=== PATIENT | female | born 1950 | race African-American/Black ===

== ENCOUNTER 2019-09-12 20:19 | Inpatient (IN) | payer MEDICARE, MEDICAID ==
[~2019-09-12] VITALS: Ht 162.6 cm; Wt 69.4 kg
[2019-09-12] MEDS ORDERED: DEXTROSE 50% WATER 50ML SYRINGE IV ONE ×2 (21:30→21:32)
[2019-09-12 22:28] LABS: BASOPHILS % 0.4 % (0.0-2.0); EOSINOPHILS % 0.3 % (0.0-5.0); HEMATOCRIT. 32.2 % (36.0-48.0); HEMOGLOBIN. 10.7 g/dL (12.0-16.0); LYMPHOCYTES % 14.4 % (20.0-50.0); MEAN CORPUSCULAR HEMOGLOBIN 29.1 pg (28.0-32.0); MEAN PLATELET VOLUME 7.5 fl (7.4-10.4); MONOCYTES % 6.7 % (2.0-8.0); NEUTROPHILS % 78.2 % (40.0-76.0); PLATELET 551 x1000/uL (130-400); RED BLOOD CELL COUNT 3.66 mill/uL (4.2-5.4)
[2019-09-12 22:35] LABS: CHLORIDE 107 mEq/L (98-107); PROTHROMBIN TIME 11.1 sec (9.6-11.0)
[2019-09-12] MEDS ORDERED: PIPERACILLIN/TAZ 3.375G PREMIX 50 ML IV NR (23:00)
[2019-09-12] MEDS ORDERED: POTASSIUM CHLORIDE 20MEQ TABLET SR PO ONE (23:00)
[2019-09-12] MEDS ORDERED: SODIUM CHLORIDE 0.9% 1,000 ML IV NR (23:00)
[2019-09-12 23:49] LABS: CLARITY URINE TURBID (CLEAR); COLOR URINE YELLOW (YELLOW); KETONES URINE NEGATIVE (NEGATIVE); LEUKOCYTE ESTERASE URINE 3+ (NEGATIVE); NITRITE URINE NEGATIVE (NEGATIVE); OCCULT BLOOD URINE 3+ (NEGATIVE); PH URINE 5.5 (4.5-8.0); PROTEIN URINE 2+ (NEGATIVE); SPECIFIC GRAVITY URINE 1.015 (1.005-1.030); UROBILINOGEN URINE 0.2 E.U./dL (0.2-1.0)
[2019-09-13 03:00] VITALS: BP 136/67
[2019-09-13] MEDS ORDERED: GABA-290 MT (03:46)
[2019-09-13] MEDS ORDERED: INSU100C6 SQ (03:46)
[2019-09-13] MEDS ORDERED: INSU100I28 SQ (03:47)
[2019-09-13 04:00] VITALS: BP 144/67
[2019-09-13] MEDS ORDERED: DEXTROSE 50% WATER 50ML SYRINGE IV PRN ×3 (05:00→12:15)
[2019-09-13] MEDS ORDERED: SODIUM CHLORIDE 0.9% 1,000 ML IV SCH (05:00)
[2019-09-13] MEDS: ACETAMINOPHEN 325MG TABLET PO PRN (05:19)
[2019-09-13] MEDS: GABAPENTIN 300MG CAPSULE PO SCH ×4 (07:36→21:33)
[2019-09-13] MEDS: BLOOD SUGAR DIAGNOSTIC STRIP TEST SCH ×4 (07:36→21:24)
[2019-09-13 08:00] VITALS: BP 118/91
[2019-09-13] MEDS ORDERED: INSULIN LISPRO 100 UNITS/ML SUBCUT SCH (08:10)
[2019-09-13] MEDS: DOCUSATE SODIUM 100MG CAPSULE PO SCH ×2 (08:12→17:38)
[2019-09-13] MEDS: ENOXAPARIN 30MG/0.3ML SYR SUBCUT SCH (08:12)
[2019-09-13] MEDS ORDERED: ENOXAPARIN 40MG/0.4ML SYR SUBCUT SCH (09:00)
[2019-09-13 12:00] VITALS: BP 129/73
[2019-09-13] MEDS ORDERED: BLOOD SUGAR DIAGNOSTIC STRIP TEST SCH (12:40)
[2019-09-13] MEDS: INSULIN LISPRO 100 UNITS/ML SUBCUT SCH ×3 (12:55→21:25)
[2019-09-13] MEDS: PIPERACILLIN/TAZOBACTAM 2.25 G in DEXTROSE 5% WATER 50 ML IV SCH ×2 (13:53→17:42)
[2019-09-13] MEDS ORDERED: PIPERACILLIN/TAZOBACTAM 3.375 G/VIAL IV SCH (14:00)
[2019-09-13 16:00] VITALS: BP 118/62
[2019-09-13 16:23] LABS: HEMATOCRIT. 29.6 % (36.0-48.0); HEMOGLOBIN. 9.9 g/dL (12.0-16.0); MEAN CORPUSCULAR HEMOGLOBIN 28.9 pg (28.0-32.0); MEAN CORPUSCULAR VOLUME 86.4 fL (81.0-99.0); MEAN PLATELET VOLUME 7.6 fl (7.4-10.4); PLATELET 429 x1000/uL (130-400); RED BLOOD CELL COUNT 3.43 mill/uL (4.2-5.4); RED CELL DISTRIBUTION WIDTH 20.4 % (11.6-14.6)
[2019-09-13 17:30] LABS: PLATELET ESTIMATE NORMAL
[2019-09-13] MEDS: DEXT 5%/0.9% NACL 1,000 ML IV SCH (17:40)
[2019-09-13 20:37] VITALS: BP 169/76
[2019-09-14 00:22] VITALS: BP 114/68
[2019-09-14] MEDS: PIPERACILLIN/TAZOBACTAM 2.25 G in DEXTROSE 5% WATER 50 ML IV SCH ×2 (01:46→06:14)
[2019-09-14] MEDS: HYDROCODONE/ACETAMINOPHEN 5/325MG TABLET PO PRN ×2 (01:53→08:29)
[2019-09-14 04:00] VITALS: BP 109/52
[2019-09-14] MEDS: GABAPENTIN 300MG CAPSULE PO SCH ×2 (06:14→14:52)
[2019-09-14 06:42] LABS: BASOPHILS % 0.3 % (0.0-2.0); EOSINOPHILS % 0.1 % (0.0-5.0); HEMATOCRIT. 28.6 % (36.0-48.0); HEMOGLOBIN. 9.6 g/dL (12.0-16.0); LYMPHOCYTES % 12.4 % (20.0-50.0); MEAN CORPUSCULAR HEMOGLOBIN 29.5 pg (28.0-32.0); MEAN CORPUSCULAR VOLUME 87.9 fL (81.0-99.0); MEAN PLATELET VOLUME 7.5 fl (7.4-10.4); MONOCYTES % 6.1 % (2.0-8.0); NEUTROPHILS % 81.1 % (40.0-76.0); PLATELET 381 x1000/uL (130-400); RED BLOOD CELL COUNT 3.26 mill/uL (4.2-5.4); RED CELL DISTRIBUTION WIDTH 20.5 % (11.6-14.6)
[2019-09-14] MEDS: BLOOD SUGAR DIAGNOSTIC STRIP TEST SCH ×2 (07:34→12:50)
[2019-09-14] MEDS: DOCUSATE SODIUM 100MG CAPSULE PO SCH (08:29)
[2019-09-14] MEDS: ENOXAPARIN 30MG/0.3ML SYR SUBCUT SCH (08:29)
[2019-09-14] MEDS: INSULIN LISPRO 100 UNITS/ML SUBCUT SCH ×2 (08:37→12:56)
[2019-09-14] MEDS: DEXT 5%/0.9% NACL 1,000 ML IV SCH (09:43)
[2019-09-14 12:00] VITALS: BP 100/57
[2019-09-14] MEDS ORDERED: PIPERACILLIN/TAZOBACTAM 2.25 G in DEXTROSE 5% WATER 50 ML IV SCH (14:00)
[2019-09-14] MEDS: ACETAMINOPHEN 325MG TABLET PO PRN (14:52)
[2019-09-14 15:03] VITALS: BP 100/57
[2019-09-14 16:03] LABS: T4 FREE 0.81 ng/dL (0.76-1.46)
[2019-09-14 16:13] LABS: FOLIC ACID (FOLATE) SERUM 9.2 ng/mL (>5.38)
== END 2019-09-14 17:05 | disposition short-term general hospital (02) | DRG 871 ==
LOC: ER 20:19 → MICUSO 23:17 → EDBEDREQ 23:36 → EDBEDREQTM 23:36 → 7WST 09-13 03:04
PROVIDERS: ADMIT Internal Medicine; ATTEND Internal Medicine
DX: A41.50 Gram-negative sepsis, unspecified (principal); N17.0 Acute kidney failure with tubular necrosis; E43 Unspecified severe protein-calorie malnutrition; U07.1 COVID-19; G92 Toxic encephalopathy; N39.0 Urinary tract infection, site not specified; D64.9 Anemia, unspecified; E11.649 Type 2 diabetes mellitus with hypoglycemia without coma; I11.0 Hypertensive heart disease with heart failure; E87.6 Hypokalemia; I50.9 Heart failure, unspecified; G90.8 Other disorders of autonomic nervous system; R90.82 White matter disease, unspecified; R65.20 Severe sepsis without septic shock; Z68.26 Body mass index [BMI] 26.0-26.9, adult; Z86.73 Personal history of transient ischemic attack (TIA), and cerebral infarction without residual deficits
CPT/HCPCS: 36415; 71045; 72170; 80048; 80053; 81003; 82607; 82746; 82962; 83036; 83605; 83880; 84439; 84443; 84481; 84484; 85025; 87077; 87186; 93005; 96365; 99291; J1650; J1815; J2543; J7030; J7042; J7060; U0003-CS

== ENCOUNTER 2019-09-29 09:07 | Inpatient (IN) | payer MEDICARE, MEDICAID ==
[~2019-09-29] VITALS: Ht 162.6 cm; Wt 83.0 kg
[~2019-09-29 09:07] MED LIST: GABA-290 MT; INSU100C6 SQ; INSU100I28 SQ
[2019-09-29 09:54] LABS: BASOPHILS % 0.6 % (0.0-2.0); EOSINOPHILS % 0.1 % (0.0-5.0); HEMATOCRIT. 28.8 % (36.0-48.0); HEMOGLOBIN. 9.4 g/dL (12.0-16.0); LYMPHOCYTES % 21.4 % (20.0-50.0); MEAN CORPUSCULAR HEMOGLOBIN 29.3 pg (28.0-32.0); MEAN CORPUSCULAR VOLUME 89.6 fL (81.0-99.0); MEAN PLATELET VOLUME 7.6 fl (7.4-10.4); NEUTROPHILS % 70.9 % (40.0-76.0); PLATELET 401 x1000/uL (130-400); RED BLOOD CELL COUNT 3.21 mill/uL (4.2-5.4); RED CELL DISTRIBUTION WIDTH 20.1 % (11.6-14.6)
[2019-09-29 10:02] LABS: INR 1.1; PROTHROMBIN TIME 11.4 sec (9.6-11.0)
[2019-09-29 10:04] LABS: CHLORIDE 107 mEq/L (98-107)
[2019-09-29 10:08] LABS: ETHANOL BLOOD < 10 mg/dL
[2019-09-29 10:11] LABS: LDL CHOLESTEROL 134 mg/dL (5-100)
[2019-09-29] MEDS ORDERED: IOHEXOL-350 100 ML BOTTLE ONE (10:41)
[2019-09-29 10:56] LABS: BG BASE EXCESS -1.2 mmol/L (-2.0-2.0); BG CARBOXYHEMOGLOBIN 0.3 % (0.5-1.5); BG DEOXYHEMOGLOBIN 3.3 % (0.0-5.0); BG FRACTION INSPIRED OXYGEN 21; BG HCO3 ACT 22.9 mmol/L (22.0-26.0); BG METHEMOGLOBIN 0.3 % (0.0-1.5); BG OXYGEN SATURATION 96.7 % (92.0-98.5); BG OXYHEMOGLOBIN 96.1 % (94.0-97.0); BG PCO2 35.7 mmHg (35.0-45.0); BG PH 7.425 (7.350-7.450); BG PO2 93.4 mmHg (75.0-100.0); BG SAMPLE SITE RIGHT RADIAL; BG TOTAL HEMOGLOBIN 9.6 g/dL (12.0-18.0); BG VENT MODE ROOM AIR
[2019-09-29 11:20] LABS: CLARITY URINE CLEAR (CLEAR); COLOR URINE YELLOW (YELLOW); KETONES URINE TRACE (NEGATIVE); LEUKOCYTE ESTERASE URINE 1+ (NEGATIVE); NITRITE URINE NEGATIVE (NEGATIVE); OCCULT BLOOD URINE TRACE (NEGATIVE); PH URINE 5.5 (4.5-8.0); PROTEIN URINE 2+ (NEGATIVE); SPECIFIC GRAVITY URINE 1.014 (1.005-1.030)
[2019-09-29 11:44] LABS: *AMPHETAMINES SCREEN URINE NEGATIVE (NEGATIVE); *BARBITURATES SCREEN URINE NEGATIVE (NEGATIVE); *BENZODIAZEPINES SCREEN URINE NEGATIVE (NEGATIVE); CANNABINOID URINE SCREEN NEGATIVE (NEGATIVE); PHENCYCLIDINE URINE SCREEN NEGATIVE (NEGATIVE)
[2019-09-29 11:45] LABS: *COCAINE SCREEN URINE NEGATIVE (NEGATIVE); METHADONE URINE SCREEN NEGATIVE (NEGATIVE); OPIATES URINE SCREEN NEGATIVE (NEGATIVE)
[2019-09-29 15:15] VITALS: BP 112/66
[2019-09-29 16:00] VITALS: BP 115/62
[2019-09-29 20:00] VITALS: BP 121/59
[2019-09-29] MEDS ORDERED: ACETAMINOPHEN 325MG TABLET PO PRN (22:45)
[2019-09-29] MEDS ORDERED: ONDANSETRON HCL 4MG/2ML INJ IV PRN (22:45)
[2019-09-29] MEDS ORDERED: PIPERACILLIN/TAZ 3.375G PREMIX 50 ML IV SCH (22:45)
[2019-09-29] MEDS ORDERED: DEXTROSE 50% WATER 50ML SYRINGE IV PRN (23:30)
[2019-09-29] MEDS: PIPERACILLIN/TAZOBACTAM 2.25 G in DEXTROSE 5% WATER 50 ML IV SCH (23:41)
[2019-09-29] MEDS: DEXT 5%/0.9% NACL 1,000 ML IV SCH (23:41)
[2019-09-30 00:25] VITALS: BP 131/68
[2019-09-30] MEDS ORDERED: VANCOMYCIN 1250MG in DEXTROSE 5% WATER 250ML IV NR (01:00)
[2019-09-30 04:00] VITALS: BP 137/71
[2019-09-30] MEDS: BLOOD SUGAR DIAGNOSTIC STRIP TEST SCH ×4 (06:22→21:54)
[2019-09-30] MEDS: PIPERACILLIN/TAZOBACTAM 2.25 G in DEXTROSE 5% WATER 50 ML IV SCH ×3 (06:33→18:08)
[2019-09-30 06:43] LABS: EOSINOPHILS % 0.5 % (0.0-5.0); HEMOGLOBIN. 9.2 g/dL (12.0-16.0); LYMPHOCYTES % 25.1 % (20.0-50.0); MEAN CORPUSCULAR HEMOGLOBIN 29.5 pg (28.0-32.0); MEAN CORPUSCULAR VOLUME 89.3 fL (81.0-99.0); MEAN PLATELET VOLUME 7.5 fl (7.4-10.4); MONOCYTES % 9.6 % (2.0-8.0); NEUTROPHILS % 63.8 % (40.0-76.0); PLATELET 335 x1000/uL (130-400); RED BLOOD CELL COUNT 3.13 mill/uL (4.2-5.4); RED CELL DISTRIBUTION WIDTH 20.1 % (11.6-14.6)
[2019-09-30 08:00] VITALS: BP 148/69
[2019-09-30] MEDS: INSULIN LISPRO 100 UNITS/ML SUBCUT SCH ×4 (08:10→23:04)
[2019-09-30] MEDS: ENOXAPARIN 30MG/0.3ML SYR SUBCUT SCH (09:12)
[2019-09-30] MEDS: DEXT 5%/0.9% NACL 1,000 ML IV SCH ×2 (10:00→20:35)
[2019-09-30 12:00] VITALS: BP 140/73
[2019-09-30] MEDS: ASPIRIN 81MG TABLET PO SCH (15:30)
[2019-09-30 16:00] VITALS: BP 154/71
[2019-09-30 17:26] LABS: T4 FREE 0.81 ng/dL (0.76-1.46)
[2019-09-30 17:34] LABS: FOLIC ACID (FOLATE) SERUM 7.1 ng/mL (>5.38)
[2019-09-30 20:00] VITALS: BP 136/67
[2019-09-30] MEDS: ATORVASTATIN CALCIUM 40MG TABLET PO SCH (20:33)
[2019-09-30] MEDS ORDERED: VANCOMYCIN 750 MG PREMIX 150 ML IV SCH (23:00)
[2019-10-01] VITALS (11 sets, daily range): BP systolic 132–183; BP diastolic 63–84
[2019-10-01] MEDS: PIPERACILLIN/TAZOBACTAM 2.25 G in DEXTROSE 5% WATER 50 ML IV SCH ×4 (00:10→19:48)
[2019-10-01] MEDS: DEXT 5%/0.9% NACL 1,000 ML IV SCH ×2 (05:55→16:21)
[2019-10-01] MEDS: BLOOD SUGAR DIAGNOSTIC STRIP TEST SCH ×3 (06:07→18:03)
[2019-10-01 06:22] LABS: BASOPHILS % 0.7 % (0.0-2.0); HEMATOCRIT. 24.7 % (36.0-48.0); HEMOGLOBIN. 8.3 g/dL (12.0-16.0); MEAN CORPUSCULAR HEMOGLOBIN 29.8 pg (28.0-32.0); MEAN CORPUSCULAR VOLUME 88.6 fL (81.0-99.0); MEAN PLATELET VOLUME 7.7 fl (7.4-10.4); MONOCYTES % 10.3 % (2.0-8.0); PLATELET 312 x1000/uL (130-400); RED BLOOD CELL COUNT 2.79 mill/uL (4.2-5.4); RED CELL DISTRIBUTION WIDTH 20.1 % (11.6-14.6)
[2019-10-01] MEDS: INSULIN LISPRO 100 UNITS/ML SUBCUT SCH ×3 (06:38→18:12)
[2019-10-01] MEDS: ASPIRIN 81MG TABLET PO SCH (08:32)
[2019-10-01] MEDS: ENOXAPARIN 30MG/0.3ML SYR SUBCUT SCH (08:32)
[2019-10-01 11:28] LABS: BG BASE EXCESS -2.7 mmol/L (-2.0-2.0); BG CARBOXYHEMOGLOBIN 0.3 % (0.5-1.5); BG DEOXYHEMOGLOBIN 3.7 % (0.0-5.0); BG FRACTION INSPIRED OXYGEN 21; BG HCO3 ACT 20.7 mmol/L (22.0-26.0); BG METHEMOGLOBIN 0.3 % (0.0-1.5); BG OXYGEN SATURATION 96.3 % (92.0-98.5); BG OXYHEMOGLOBIN 95.7 % (94.0-97.0); BG PCO2 30.4 mmHg (35.0-45.0); BG PO2 93.9 mmHg (75.0-100.0); BG SAMPLE SITE RIGHT RADIAL; BG TOTAL HEMOGLOBIN 8.9 g/dL (12.0-18.0); BG VENT MODE ROOM AIR
[2019-10-01] MEDS ORDERED: POTASSIUM CHLORIDE INJ 40 MEQ in DEXT 5% WATER 250 ML IV SCH (15:00)
[2019-10-01] MEDS: AMLODIPINE 10MG TABLET PO SCH (16:20)
[2019-10-01] MEDS: VANCOMYCIN 750 MG PREMIX 150 ML IV SCH (18:02)
[2019-10-01] MEDS: ATORVASTATIN CALCIUM 40MG TABLET PO SCH (20:04)
[2019-10-02] VITALS (9 sets, daily range): BP systolic 131–171; BP diastolic 62–86
[2019-10-02] MEDS: PIPERACILLIN/TAZOBACTAM 2.25 G in DEXTROSE 5% WATER 50 ML IV SCH ×4 (00:17→17:24)
[2019-10-02] MEDS: BLOOD SUGAR DIAGNOSTIC STRIP TEST SCH ×4 (00:17→17:20)
[2019-10-02] MEDS: INSULIN LISPRO 100 UNITS/ML SUBCUT SCH ×4 (00:19→17:25)
[2019-10-02] MEDS: DEXT 5%/0.9% NACL 1,000 ML IV SCH ×2 (00:22→11:04)
[2019-10-02] MEDS: AMLODIPINE 10MG TABLET PO SCH (08:38)
[2019-10-02] MEDS: ENOXAPARIN 30MG/0.3ML SYR SUBCUT SCH (08:38)
[2019-10-02] MEDS: ASPIRIN 81MG TABLET PO SCH (08:38)
[2019-10-02] MEDS: VANCOMYCIN 750 MG PREMIX 150 ML IV SCH (09:00)
[2019-10-02 15:59] LABS: BASOPHILS % 0.4 % (0.0-2.0); EOSINOPHILS % 1.9 % (0.0-5.0); HEMATOCRIT. 26.6 % (36.0-48.0); HEMOGLOBIN. 8.8 g/dL (12.0-16.0); LYMPHOCYTES % 28.7 % (20.0-50.0); MEAN CORPUSCULAR HEMOGLOBIN 29.6 pg (28.0-32.0); MEAN CORPUSCULAR VOLUME 89.2 fL (81.0-99.0); MEAN PLATELET VOLUME 7.7 fl (7.4-10.4); MONOCYTES % 10.7 % (2.0-8.0); NEUTROPHILS % 58.3 % (40.0-76.0); PLATELET 330 x1000/uL (130-400); RED BLOOD CELL COUNT 2.99 mill/uL (4.2-5.4); RED CELL DISTRIBUTION WIDTH 19.4 % (11.6-14.6)
[2019-10-02] MEDS: ATORVASTATIN CALCIUM 40MG TABLET PO SCH (20:42)
[2019-10-03] VITALS (8 sets, daily range): BP systolic 144–179; BP diastolic 72–88
[2019-10-03] MEDS: PIPERACILLIN/TAZOBACTAM 2.25 G in DEXTROSE 5% WATER 50 ML IV SCH ×5 (00:08→23:46)
[2019-10-03] MEDS: BLOOD SUGAR DIAGNOSTIC STRIP TEST SCH ×5 (00:09→23:47)
[2019-10-03] MEDS: INSULIN LISPRO 100 UNITS/ML SUBCUT SCH ×5 (00:09→23:47)
[2019-10-03] MEDS: VANCOMYCIN 750 MG PREMIX 150 ML IV SCH ×2 (04:25→21:03)
[2019-10-03] MEDS: DEXT 5%/0.9% NACL 1,000 ML IV SCH ×3 (04:26→17:43)
[2019-10-03 06:10] LABS: PROTHROMBIN TIME 11.2 sec (9.6-11.0)
[2019-10-03] MEDS: ASPIRIN 81MG TABLET PO SCH (09:00)
[2019-10-03] MEDS: AMLODIPINE 10MG TABLET PO SCH (09:00)
[2019-10-03] MEDS ORDERED: MIDAZOLAM HCL 2 MG/2 ML VIAL IV PRN (13:26)
[2019-10-03] MEDS ORDERED: MIDAZOLAM HCL 5 MG/5 ML VIAL ONE (13:51)
[2019-10-03] MEDS ORDERED: FENTANYL CITRATE/PF 50MCG/ML 2ML VIAL ONE (13:52)
[2019-10-03] MEDS: ATORVASTATIN CALCIUM 40MG TABLET PO SCH (21:03)
[2019-10-04] VITALS: BP 145/77
[2019-10-04 04:00] VITALS: BP 144/71
[2019-10-04] MEDS: DEXT 5%/0.9% NACL 1,000 ML IV SCH ×2 (05:53→21:41)
[2019-10-04] MEDS: INSULIN LISPRO 100 UNITS/ML SUBCUT SCH ×3 (05:53→17:28)
[2019-10-04] MEDS: PIPERACILLIN/TAZOBACTAM 2.25 G in DEXTROSE 5% WATER 50 ML IV SCH ×3 (05:53→17:44)
[2019-10-04] MEDS: BLOOD SUGAR DIAGNOSTIC STRIP TEST SCH ×4 (05:54→23:53)
[2019-10-04 08:00] VITALS: BP 158/73
[2019-10-04] MEDS: ASPIRIN 81MG TABLET PO SCH (08:36)
[2019-10-04] MEDS: ENOXAPARIN 40MG/0.4ML SYR SUBCUT SCH (08:36)
[2019-10-04] MEDS: AMLODIPINE 10MG TABLET PO SCH (08:37)
[2019-10-04] MEDS ORDERED: CLONIDINE 0.1MG TABLET PO PRN ×2 (10:30→16:30)
[2019-10-04 12:00] VITALS: BP 153/75
[2019-10-04] MEDS: VANCOMYCIN 750 MG PREMIX 150 ML IV SCH (15:01)
[2019-10-04 16:00] VITALS: BP 141/77
[2019-10-04 20:00] VITALS: BP 151/74
[2019-10-04] MEDS: LINEZOLID 600 MG PREMIX 300 ML IV SCH (21:41)
[2019-10-04] MEDS: ATORVASTATIN CALCIUM 40MG TABLET PO SCH (21:41)
[2019-10-05] VITALS (7 sets, daily range): BP systolic 127–150; BP diastolic 67–75
[2019-10-05] MEDS: PIPERACILLIN/TAZOBACTAM 2.25 G in DEXTROSE 5% WATER 50 ML IV SCH ×3 (00:01→12:06)
[2019-10-05] MEDS: DEXT 5%/0.9% NACL 1,000 ML IV SCH ×2 (00:01→09:14)
[2019-10-05] MEDS: INSULIN LISPRO 100 UNITS/ML SUBCUT SCH ×4 (00:02→18:06)
[2019-10-05] MEDS: BLOOD SUGAR DIAGNOSTIC STRIP TEST SCH ×3 (06:03→17:40)
[2019-10-05 06:52] LABS: BASOPHILS % 0.3 % (0.0-2.0); EOSINOPHILS % 0.7 % (0.0-5.0); HEMATOCRIT. 28.2 % (36.0-48.0); HEMOGLOBIN. 9.3 g/dL (12.0-16.0); LYMPHOCYTES % 24.7 % (20.0-50.0); MEAN CORPUSCULAR HEMOGLOBIN 29.2 pg (28.0-32.0); MEAN CORPUSCULAR VOLUME 88.7 fL (81.0-99.0); MEAN PLATELET VOLUME 7.9 fl (7.4-10.4); MONOCYTES % 9.9 % (2.0-8.0); NEUTROPHILS % 64.4 % (40.0-76.0); PLATELET 325 x1000/uL (130-400); RED BLOOD CELL COUNT 3.17 mill/uL (4.2-5.4)
[2019-10-05 07:49] LABS: CHLORIDE 106 mEq/L (98-107)
[2019-10-05] MEDS: ASPIRIN 81MG TABLET PO SCH (08:21)
[2019-10-05] MEDS: ENOXAPARIN 40MG/0.4ML SYR SUBCUT SCH (08:21)
[2019-10-05] MEDS: AMLODIPINE 10MG TABLET PO SCH (08:22)
[2019-10-05] MEDS: LINEZOLID 600 MG PREMIX 300 ML IV SCH ×2 (08:23→20:22)
[2019-10-05] MEDS ORDERED: POTASSIUM CHLORIDE 20MEQ/PACKET PO NR (14:15)
[2019-10-05] MEDS: GLIPIZIDE 10MG TABLET PO SCH (18:00)
[2019-10-05] MEDS: ATORVASTATIN CALCIUM 40MG TABLET PO SCH (21:50)
[2019-10-06] VITALS (7 sets, daily range): BP systolic 103–136; BP diastolic 55–88
[2019-10-06] MEDS: INSULIN LISPRO 100 UNITS/ML SUBCUT SCH ×5 (00:59→23:15)
[2019-10-06] MEDS: DEXT 5%/0.9% NACL 1,000 ML IV SCH ×2 (05:41→16:00)
[2019-10-06] MEDS: BLOOD SUGAR DIAGNOSTIC STRIP TEST SCH ×5 (06:00→23:16)
[2019-10-06] MEDS: GLIPIZIDE 10MG TABLET PO SCH ×2 (06:18→17:43)
[2019-10-06 07:00] LABS: BASOPHILS % 0.3 % (0.0-2.0); EOSINOPHILS % 0.7 % (0.0-5.0); HEMATOCRIT. 26.4 % (36.0-48.0); HEMOGLOBIN. 8.8 g/dL (12.0-16.0); LYMPHOCYTES % 21.4 % (20.0-50.0); MEAN CORPUSCULAR HEMOGLOBIN 29.2 pg (28.0-32.0); MEAN CORPUSCULAR VOLUME 87.7 fL (81.0-99.0); MEAN PLATELET VOLUME 7.8 fl (7.4-10.4); NEUTROPHILS % 68.6 % (40.0-76.0); PLATELET 347 x1000/uL (130-400); RED BLOOD CELL COUNT 3.01 mill/uL (4.2-5.4); RED CELL DISTRIBUTION WIDTH 19.1 % (11.6-14.6)
[2019-10-06] MEDS: ASPIRIN 81MG TABLET PO SCH (08:55)
[2019-10-06] MEDS: AMLODIPINE 10MG TABLET PO SCH (08:55)
[2019-10-06] MEDS: ENOXAPARIN 40MG/0.4ML SYR SUBCUT SCH (08:56)
[2019-10-06] MEDS: LINEZOLID 600 MG PREMIX 300 ML IV SCH (08:56)
[2019-10-06] MEDS: METOCLOPRAMIDE HCL 10MG/2ML VIAL IV SCH ×3 (15:31→23:16)
[2019-10-06] MEDS: ATORVASTATIN CALCIUM 40MG TABLET PO SCH (20:29)
[2019-10-06] MEDS: LINEZOLID 600MG TABLET PO SCH (20:29)
[2019-10-07] VITALS: BP 133/63
[2019-10-07] MEDS: DEXT 5%/0.9% NACL 1,000 ML IV SCH ×3 (01:04→20:26)
[2019-10-07 03:40] VITALS: BP 151/77
[2019-10-07] MEDS: METOCLOPRAMIDE HCL 10MG/2ML VIAL IV SCH ×4 (05:08→23:25)
[2019-10-07] MEDS: INSULIN LISPRO 100 UNITS/ML SUBCUT SCH ×4 (05:10→23:25)
[2019-10-07] MEDS: BLOOD SUGAR DIAGNOSTIC STRIP TEST SCH ×4 (05:10→23:25)
[2019-10-07] MEDS: GLIPIZIDE 10MG TABLET PO SCH ×2 (10:02→18:38)
[2019-10-07] MEDS: ASPIRIN 81MG TABLET PO SCH (10:02)
[2019-10-07] MEDS: LINEZOLID 600MG TABLET PO SCH ×2 (10:02→20:26)
[2019-10-07] MEDS: ENOXAPARIN 40MG/0.4ML SYR SUBCUT SCH (10:03)
[2019-10-07] MEDS: AMLODIPINE 10MG TABLET PO SCH (10:03)
[2019-10-07 11:46] VITALS: BP 141/68
[2019-10-07] MEDS ORDERED: DOCUSATE SODIUM SUGAR FREE 100MG/10ML UDC PEG PRN (13:15)
[2019-10-07 16:00] VITALS: BP 135/65
[2019-10-07 20:00] VITALS: BP 146/68
[2019-10-07] MEDS: ATORVASTATIN CALCIUM 40MG TABLET PO SCH (20:26)
[2019-10-08] VITALS (8 sets, daily range): BP systolic 123–148; BP diastolic 57–81
[2019-10-08] MEDS: BLOOD SUGAR DIAGNOSTIC STRIP TEST SCH ×3 (05:28→18:28)
[2019-10-08] MEDS: INSULIN LISPRO 100 UNITS/ML SUBCUT SCH ×3 (05:28→18:00)
[2019-10-08] MEDS: METOCLOPRAMIDE HCL 10MG/2ML VIAL IV SCH ×3 (05:42→18:44)
[2019-10-08] MEDS: DEXT 5%/0.9% NACL 1,000 ML IV SCH ×2 (08:00→18:35)
[2019-10-08] MEDS: GLIPIZIDE 10MG TABLET PO SCH ×2 (10:33→18:44)
[2019-10-08] MEDS: AMLODIPINE 10MG TABLET PO SCH (10:34)
[2019-10-08] MEDS: ENOXAPARIN 40MG/0.4ML SYR SUBCUT SCH (10:34)
[2019-10-08] MEDS: ASPIRIN 81MG TABLET PO SCH (10:34)
[2019-10-08] MEDS: LINEZOLID 600MG TABLET PO SCH ×2 (10:35→20:21)
[2019-10-08] MEDS: ATORVASTATIN CALCIUM 40MG TABLET PO SCH (20:21)
== END 2019-10-08 22:50 | DRG 871 ==
LOC: ER 09:07 → EDBEDREQSVC 11:15 → EDBEDREQTM 11:15 → EDBEDREQ 11:15 → 7WST 11:37 → EDBEDREQ 11:41 → EDBEDREQTM 11:41 → ENRESERV 14:01 → 5EST 10-01 11:47
PROVIDERS: ADMIT Internal Medicine; ATTEND Internal Medicine
PROC: 0DH63UZ Insertion of Feeding Device into Stomach, Percutaneous Approach (ICD-10-PCS; principal; 2019-10-03)
DX: A41.89 Other specified sepsis (principal); G92 Toxic encephalopathy; N17.0 Acute kidney failure with tubular necrosis; N39.0 Urinary tract infection, site not specified; D64.9 Anemia, unspecified; E11.9 Type 2 diabetes mellitus without complications; I10 Essential (primary) hypertension; I65.21 Occlusion and stenosis of right carotid artery; K29.70 Gastritis, unspecified, without bleeding; L89.309 Pressure ulcer of unspecified buttock, unspecified stage; R13.12 Dysphagia, oropharyngeal phase; Z20.828 Contact with and (suspected) exposure to other viral communicable diseases; R26.89 Other abnormalities of gait and mobility; Z86.73 Personal history of transient ischemic attack (TIA), and cerebral infarction without residual deficits; Z79.899 Other long term (current) drug therapy
CPT/HCPCS: 36415; 36600; 70496; 70498; 70551; 71045; 74018; 80048; 80053; 80202; 80305; 80320; 81003; 82140; 82375; 82607; 82746; 82805; 82962; 83036; 83605; 83721; 84439; 84443; 84481; 84484; 85025; 86850; 86900; 87106; 93005; 99291; J1650; J1815; J2020; J2250; J2543; J2765; J3010; J3370; J3480; J7042; J7060; Q9967; G0480; U0003-CS